=== PATIENT | male | born 1965 | race Caucasian/White ===

== ENCOUNTER 2018-04-16 06:26 | Day surgery (SDC) | payer BC, SELFPAY ==
--- NOTE | 2018-04-11 06:28 | EKG12_ITS ---
Test Reason : PREOP Blood Pressure : / mmHG Vent. Rate : 064 BPM Atrial Rate : 064 BPM P-R Int : 174 ms QRS Dur : 096 ms QT Int : 404 ms P-R-T Axes : 060 034 047 degrees QTc Int : 416 ms Normal sinus rhythm Normal ECG Confirmed by RICHARD VELIZ ([id number]), visual effects editor DEBORAH SOLIMAN ([id number]) on 04/14/2018 2:18:06 PM Referred By: Jonny Pak Confirmed By:RICHARD VELIZ
[2018-04-11 07:34] LABS: Hematocrit 45.7 % (40-54); Hemoglobin 15.6 g/dl (13.0-16.5); Mean Corp Hgb Conc 34.1 g/gl (32-36); Mean Corpuscular Hgb 31.9 pg (27.0-32.0); Mean Corpuscular Volume 93.5 fL (80-94); Mean Platelet Vol. 10.2 fl (6.2-12.0); Platelet Count 202 K/mm3 (150-450); RBC Distribution Width CV 12.8 % (11.6-14.6); Red Blood Count 4.89 M/mm3 (4.6-6.2); White Blood Count 6.6 K/mm3 (4.4-11.0)
[2018-04-11 07:44] LABS: Scan Indicated on CBC? Y/N NO
[2018-04-11 07:51] LABS: Anion Gap 8 (5-15); BUN 16 mg/dL (7-18); BUN/Creat Ratio 13.3 RATIO (10-20); Calcium,Total 8.6 mg/dL (8.5-10.1); Chloride 107 mmol/L (98-107); EST Glomerular Filtration Rate 67 mL/min (>60); Est Glom Filt Rate - Afr Amer 82 mL/min (>60); Glucose 96 mg/dL (74-106); Potassium 4.3 mmol/L (3.5-5.1); Sodium Level 141 mmol/L (136-145)
[2018-04-16] VITALS (7 sets, daily range): BP systolic 95–154; BP diastolic 63–90; PULSE 48–66; RESP 14–18; TEMP 36.3–36.9; O2SAT 94–100; BMI 32.4
--- NOTE | 2018-04-16 | HERN_PTH ---
PATIENT: KUNAL OREILLY [place] [facility] [place][id number] AGE/SX: 52/M ROOM: RE04/16/[address]: Dr. Jonny Pak MD : [id number] BED: DIS: 04/16/2018 SPEC #: [id number] RECD: 04/16/18 14:54 STATUS: DELPHINE EDI #: [id number] CAROL: 04/16/18 00:[address]: Jonny Pak DEPT: SURGICAL PATHOLOGY RECD BY: Dre Aguilar ENTERED: 04/16/18 14:54 SP TYPE: Hernia OTHR DR: Dr. Gerald Gordon MD Tissues: HERNIA Procedures: Surgery Specimen Level II HEADER OPERATION: Inguinal hernia repair with mesh and umbilical hernia repair PRE-OP DIAGNOSIS: Bilateral inguinal hernia and umbilical hernia TISSUE SUBMITTED: Umbilical hernia sac contents MICROSCOPIC DIAGNOSIS Soft tissue of umbilical region, excision: Consistent with hernia sac. AM:caty 04/17/18 MICROSCOPIC DESCRIPTION Slides are reviewed. GROSS DESCRIPTION Received is one container labeled with the patient name and designated umbilical hernia sac. The specimen consists of three irregular fragments of keating-yellow fibrofatty tissue that in aggregate measure 3 x 1.5 x 1 cm. The specimen is totally submitted in its entirety in one cassette. / AM:sp 04/16/18 TC: 5 CPT: 88680
[2018-04-16] MEDS: Cefazolin 2 GM in 0.9% Normal Saline 100 ML IV (08:19)
[2018-04-16] MEDS: Bupivacaine Mpf 0.5% 30 ML VIAL (09:54)
--- NOTE | 2018-04-16 10:01 | DCINST_ITS ---
Discharge Diet: Light diet - advance as tolerated - if you have questions about your diet instructions, please talk to you doctor. Discharge Activity: May Not Drive - for 1 week or while taking narcotic pain medicine. May shower in (days): 1 Lifting Restrictions: 10 pounds Call your doctor if your incision/area has: Continuous Slow Oozing, Sudden Increased Bleeding, Increased Pain/ Swelling, Increased Redness, Foul Smelling Discharge Call your doctor if you observe: Fever of 101 or Higher Suture Line Care: Avoid Pulling/Pushing, Avoid Pinching/Bending Additional Dressing/Incision Instructions:: Change or remove dressing in 4 days. Leave steri-strips in place for 1 week. Allergies/Adverse Reactions: Allergies No Known Allergies Allergy (Verified 04/16/18 06:42) Medications to take at Discharge Arginine [l-Arginine] 500 mg PO DAILY 04/09/18 Hydrocodone Bitart/Apap 5-325 [[place] 5MG-325MG] 1 tablet PO Q4H PRN PRN 3 Days #10 tablet 04/16/18 The following prescriptions were given: Hydrocodone Bitart/Apap 5-325 [[place] 5MG-325MG] 1 tablet PO Q4H PRN PRN 3 Days #10 tablet PRN Reason: Pain Primary Care Physician: Gerald Gordon MD [Primary Care Provider] - Test Results: Test results from this visit will be discussed in further detail at your follow- up appointment, if applicable. Please Follow Up With: Jonny Pak MD - [phone] When: Call to make an appointment to be seen in about 10 days.
--- NOTE | 2018-04-16 10:01 | PCM.OPRPT ---
Problem List (1) Right inguinal hernia Status: Acute (2) Umbilical hernia without obstruction or gangrene Status: Acute Report of Operation Date of Procedure: 04/16/18 Pre-Operative Diagnosis: Umbilical hernia. Right inguinal hernia. Left inguinal sports hernia Post-Operative Diagnosis: Umbilical hernia. Bilateral direct inguinal hernias Surgery/Procedure Performed:: Laparoscopic bilateral inguinal herniorrhaphy. Umbilical herniorrhaphy with 6.4 cm ventral X mesh Description of Surgical Findings:: Timeout and informed consent was obtained. 52-year-old gent was taken out from placement table underwent general endotracheal intubation anesthesia. Ancef 2 g are given intravenously preoperatively. The abdomen sterilely prepped and draped. A curvilinear incision was made in the inferior portion of the rectus. Sharp dissection was carried down through the subtenons tissue. The incarcerated umbilical hernia sac and contents were sharply dissected free. There is evidence of an umbilical hernia and just 1 cm superiorly a separate linea alba hernia. I dissected that tissue free. I then placed a 10 mm trocar and insufflated the abdomen the CO2 to a pressure of 10 mmHg pressure. 5-minute trochars were placed in bilateral lower quadrants. The abdomen was inspected no evidence any trocar injuries no superficial abnormalities. Now upon laparoscopic visualization of there is evidence of bilateral direct inguinal hernias. I started on the left side incised the peritoneum superior lateral to the internal ring I carried that medially I completely dissected the peritoneum free and across the pubic tubercle. I had the direct indirect spaces completely identified as well as the femoral space. I performed a similar procedure on the right groin. Then I selected a Bard 3D max large mesh for each side. The left was lot number [id number] with reference #[id number] expiry date 10/28/2022. And on the right lot number [id number] 06/07/2003 with a reference number of [id number] and an expiry date of 10/28/2022. I carefully positioned the mesh into place. I secured them medially superiorly and laterally with secure strap. Excellent positioning was achieved bilaterally. I then repaired the peritoneum bilaterally with a secure strap completely obliterating access to the mesh. It is of note that 0.5% Marcaine was used throughout the procedure. A total 30 cc was used. Skin sites were anesthetized. I also performed under visualization ileal inguinal nerve blocks bilaterally. I then addressed the umbilical hernia. I placed a 6.4 cm ventral X mesh. Reference #[id number] with a lot number [id number] an expiry date of 12/29/2019. The tails were secured with interrupted 0 Nurolon. The fascia was approximated the same. Laparoscopic inspection revealed that the mesh appeared to be in good position and I simply placed one cyst secure strap tacking to make sure it was absolutely flat. I sure that the greater omentum was overlying the bowel. The remaining 2 trochars were removed under visualization the abdomen was allowed to deflate CO2. Skin edges were approximated interrupted 4 Monocryl subdermal stitches. Steri-Strips Telfa and OpSite dressings applied. Sponge and instrument and needle counts were reported the surgeon be correct. Blood loss was minimal. The patient tolerated procedure well was taken to the recovery area in satisfactory condition. Specimens umbilical hernia sac and contents. Drains none. Blood loss minimal. Jonny Pak M.D., F.A.C.S. Type of Anesthesia:: General Anesthesiologist: Sanket Hall
--- NOTE | 2018-04-16 10:07 | OP.PCM_ITS ---
Problem List (1) Right inguinal hernia Status: Acute (2) Umbilical hernia without obstruction or gangrene Status: Acute Report of Operation Date of Procedure: 04/16/18 Pre-Operative Diagnosis: Umbilical hernia. Right inguinal hernia. Left inguinal sports hernia Post-Operative Diagnosis: Umbilical hernia. Bilateral direct inguinal hernias Surgery/Procedure Performed:: Laparoscopic bilateral inguinal herniorrhaphy. Umbilical herniorrhaphy with 6.4 cm ventral X mesh Description of Surgical Findings:: Timeout and informed consent was obtained. 52-year-old gent was taken out from placement table underwent general endotracheal intubation anesthesia. Ancef 2 g are given intravenously preoperatively. The abdomen sterilely prepped and drap ed. A curvilinear incision was made in the inferior portion of the rectus. Sharp dissection was carried down through the subtenons tissue. The incarcerated umbilical hernia sac and contents were sharply dissected free. There is evidence of an umbilical hernia and just 1 cm superiorly a separate linea alba hernia. I dissected that tissue free. I then placed a 10 mm trocar and insufflated the abdomen the CO2 to a pressure of 10 mmHg pressure. 5-minute trochars were placed in bilateral lower quadrants. The abdomen was inspected no evidence any trocar injuries no superficial abnormalities. Now upon laparoscopic visualization of there is evidence of bilateral direct inguinal hernias. I started on the left side incised the peritoneum superior lateral to the internal ring I carried that medially I completely dissected the peritoneum free and across the pubic tubercle. I had the direct indirect spaces completely identified as well as the femoral space. I performed a similar procedure on the right groin. Then I selected a Bard 3D max large mesh for each side. The left was lot number [id number] with reference #[id number] expiry date 10/28/2022. And on the right lot number [id number] 06/07/2003 with a reference number of [id number] and an expiry date of 10/28/2022. I carefully positioned the mesh into place. I secured them medially superiorly and laterally with secure strap. Excellent pos itioning was achieved bilaterally. I then repaired the peritoneum bilaterally with a secure strap completely obliterating access to the mesh. It is of note that 0.5% Marcaine was used throughout the procedure. A total 30 cc was used. Skin sites were anesthetized. I also performed under visualization ileal inguinal nerve blocks bilaterally. I then addressed the umbilical hernia. I placed a 6.4 cm ventral X mesh. Reference #[id number] with a lot number [employer] [id number] an expiry date of 12/29/2019. The tails were secured with interrupted 0 Nurolon. The fascia was approximated the same. Laparoscopic inspection revealed that the mesh appeared to be in good position and I simply placed one cyst secure strap tacking to make sure it was absolutely flat. I sure that the greater omentum was overlying the bowel. The remaining 2 trochars were removed under visualization the abdomen was allowed to deflate CO2. Skin edges were approximated interrupted 4 Monocryl subdermal stitches. Steri-Strips Telfa and OpSite dressings applied. Sponge and instrument and needle counts were reported the surgeon be correct. Blood loss was minimal. The patient tolerated procedure well was taken to the recovery area in satisfactory condition. Specimens umbilical hernia sac and contents. Drains none. Blood loss minimal. Jonny Pak M.D., F.A.C.S. Type of Anesthesia:: General Anesthesiologist: Sanket Hall
[2018-04-16] MEDS: HYDROcodone Bitartrate/Apap 5/325 Tablet PO (11:35)
== END 2018-04-16 14:30 | disposition home or self-care (01) ==
LOC: SDC 06:27 → AC 06:27
PROVIDERS: Family Provider Family Medicine; PCP Family Medicine; Referring Provider Surgery; Visit Provider Surgery
PROC: (CPT 49650; principal; 2018-04-16 08:10)
DX: K40.20 Bilateral inguinal hernia, without obstruction or gangrene, not specified as recurrent (principal); K42.0 Umbilical hernia with obstruction, without gangrene
CPT/HCPCS: 00752; 49650; 49652; 36415; 80048; 85027; 88302; 93005; C1781; J7120; J2405

== ENCOUNTER → 2020-03-10 08:50 | Outpatient (CLI) | payer BC, SELFPAY ==
[2020-03-10 10:37] LABS: ALB/GLOB Ratio 1.2 RATIO (0.9-2.4); AST(SGOT) 15 U/L (15-37); Alanine Aminotransfer ALT/SGPT 33 U/L (16-61); Albumin, Serum 3.8 g/dL (3.2-5.0); Alkaline Phosphatase 72 U/L (45-117); Anion Gap 5 (5-15); BUN 16 mg/dL (7-18); BUN/Creat Ratio 14.3 RATIO (10-20); Calcium,Total 8.7 mg/dL (8.5-10.1); Chloride 105 mmol/L (98-107); Cholesterol 156 mg/dL (200); Creatinine, Serum 1.12 mg/dL (0.70-1.30); EST Glomerular Filtration Rate 73 mL/min (>60); Est Glom Filt Rate - Afr Amer 88 mL/min (>60); Globulin 3.3 g/dL (2.2-4.2); Glucose 101 mg/dL (74-106); High Density Lipoprotein 37 mg/dL; PSA,Total - Annual Screen 0.37 ng/mL (0.00-4.00); Potassium 4.2 mmol/L (3.5-5.1); Protein, Total 7.1 g/dL (6.4-8.2); Sodium Level 137 mmol/L (136-145); Thyroid Stim Hormone (TSH) 1.59 uIU/mL (0.358-3.74); Triglycerides 154 mg/dL; Very Low Density Lipoprotein 31 mg/dL (5-40)
== END ==
PROVIDERS: PCP Family Medicine; Referring Provider Family Medicine; Visit Provider Family Medicine
DX: E78.5 Hyperlipidemia, unspecified (principal); E66.9 Obesity, unspecified; Z12.5 Encounter for screening for malignant neoplasm of prostate
CPT/HCPCS: 36415; 80053; 80061; 84153; 84403; 84443; G0103

== ENCOUNTER → 2020-03-18 07:49 | Outpatient (CLI) | payer BC, SELFPAY ==
--- NOTE | 2020-03-18 07:59 | ECHOD_ITS ---
Reason For Study: Family Hx Procedure This was a 2D Doppler, Color Flow transthoracic echocardiogram. The exam was of adequate technical quality. Exam performed in department. Left Ventricle Normal LV size. Left ventricular systolic function is normal. The estimated ejection fraction is 60 %. Transmitral doppler flow suggestive of impaired relaxation of left ventricle. No regional wall motion abnormalities noted. Right Ventricle Normal RV size. Normal systolic function. Atria Normal left atrium. Normal right atrium. No doppler evidence for ASD. Mitral Valve There is no mitral annular calcification. Normal mitral valve. Trivial mitral valve insufficiency. Tricuspid Valve Normal tricuspid valve. Trivial tricuspid valve insufficiency. Aortic Valve Bicuspid aortic valve. Mild focal aortic valve calcification. Pulmonic Valve The pulmonic valve is not well visualized. Great Vessels The aortic root is not well visualized. Pericardium/Pleural No pericardial effusion. MMode/2D Measurements & Calculations LVIDd: 5.1 cm IVSd: 1.2 cm LA dimension: 3.9 cm LVIDs: 3.1 cm LVPWd: 1.3 cm FS: 39.3 % LAV(MOD-bp): 46.1 ml LA A4 area: 16.2 cm2 RA A4 area: 16.7 cm2 LAV(MOD-bp) Indexed: 20.4 ml/m2 LAV(MOD-sp2): 51.8 ml LAV(MOD-sp4): 41.2 ml Time Measurements MV dec time: 0.21 sec Doppler Measurements & Calculations MV E max donavan: 49.9 cm/sec Lat Peak E' Donavan: 9.2 cm/sec Med Peak E' Donavan: 7.2 cm/sec MV A max donavan: 58.5 cm/sec E/E' lat: 5.4 E/E' med: 7.0 MV E/A: 0.85 MV V2 max: 66.9 cm/sec MV P1/2t max donavan: 53.1 cm/sec Ao V2 max: 102.7 cm/sec MV max P.8 mmHg MV P1/2t: 96.1 msec Ao max P.2 mmHg MV V2 mean: 36.6 cm/sec MV dec slope: 161.6 cm/sec2 MV mean P.63 mmHg MVA(P1/2t): 2.3 cm2 MV V2 VTI: 20.5 cm LV V1 max: 82.8 cm/sec PA V2 max: 103.0 cm/sec LV V1 max P.7 mmHg Interpretation Summary Left ventricular systolic function is normal. The estimated ejection fraction is 60 %. Trivial mitral valve insufficiency. Trivial tricuspid valve insufficiency. Bicuspid aortic valve. Mild focal aortic valve calcification. Transmitral doppler flow suggestive of impaired relaxation of left ventricle Ordering Physician: Mckay Rios Referring Physician: Mckay Rios Performed By: Marques Garcia RCS
== END ==
LOC: CVS 07:54
PROVIDERS: PCP Family Medicine; Referring Provider Family Medicine; Visit Provider Family Medicine
DX: Z82.49 Family history of ischemic heart disease and other diseases of the circulatory system (principal)
CPT/HCPCS: 93306

== ENCOUNTER 2020-09-02 13:36 | Outpatient (RCR) | payer BC, SELFPAY | END 2020-11-08 23:59 | LOC: IMMUN 13:36 | PROVIDERS: PCP Family Medicine; Visit Provider Family Medicine | DX: Z23 Encounter for immunization (principal) | CPT/HCPCS: 0001A; 0002A; 91300 ==

== ENCOUNTER → 2021-04-14 09:15 | Outpatient (CLI) | payer BC, SELFPAY ==
[2021-04-14 12:53] LABS: ALB/GLOB Ratio 1.1 RATIO (0.9-2.4); AST(SGOT) 23 U/L (15-37); Alanine Aminotransfer ALT/SGPT 39 U/L (16-61); Albumin, Serum 3.7 g/dL (3.2-5.0); Alkaline Phosphatase 73 U/L (45-117); Anion Gap 6 (5-15); BUN 19 mg/dL (7-18); BUN/Creat Ratio 15.3 RATIO (10-20); Calcium,Total 8.5 mg/dL (8.5-10.1); Chloride 105 mmol/L (98-107); Cholesterol 174 mg/dL (200); Creatinine, Serum 1.24 mg/dL (0.70-1.30); EST Glomerular Filtration Rate 64 mL/min (>60); Est Glom Filt Rate - Afr Amer 78 mL/min (>60); Globulin 3.4 g/dL (2.2-4.2); Glucose 93 mg/dL (74-106); High Density Lipoprotein 33 mg/dL; PSA,Total - Annual Screen 0.31 ng/mL (0.00-4.00); Protein, Total 7.1 g/dL (6.4-8.2); Sodium Level 138 mmol/L (136-145); Thyroid Stim Hormone (TSH) 0.86 uIU/mL (0.358-3.74); Triglycerides 154 mg/dL; Very Low Density Lipoprotein 31 mg/dL (5-40)
== END ==
PROVIDERS: PCP Family Medicine; Referring Provider Family Medicine; Visit Provider Family Medicine
DX: E78.5 Hyperlipidemia, unspecified (principal); E66.9 Obesity, unspecified; Z12.5 Encounter for screening for malignant neoplasm of prostate
CPT/HCPCS: 36415; 80053; 80061; 84153; 84443; G0103

== ENCOUNTER → 2022-03-27 | Outpatient (CLI) | payer BC, SELFPAY ==
[2022-03-27 12:35] LABS: ALB/GLOB Ratio 1.3 RATIO (0.9-2.4); AST(SGOT) 18 U/L (15-37); Alanine Aminotransfer ALT/SGPT 35 U/L (16-61); Albumin, Serum 3.9 g/dL (3.2-5.0); Alkaline Phosphatase 85 U/L (45-117); Anion Gap 6 (5-15); BUN 17 mg/dL (7-18); BUN/Creat Ratio 16.7 RATIO (10-20); Calcium,Total 8.6 mg/dL (8.5-10.1); Chloride 106 mmol/L (98-107); Cholesterol 149 mg/dL (200); Creatinine, Serum 1.02 mg/dL (0.70-1.30); EST Glomerular Filtration Rate 80 mL/min (>60); Est Glom Filt Rate - Afr Amer 97 mL/min (>60); Globulin 3.1 g/dL (2.2-4.2); Glucose 96 mg/dL (74-106); High Density Lipoprotein 30 mg/dL; PSA,Total - Annual Screen 0.55 ng/mL (0.00-4.00); Potassium 4.6 mmol/L (3.5-5.1); Sodium Level 137 mmol/L (136-145); Thyroid Stim Hormone (TSH) 1.65 uIU/mL (0.358-3.74); Triglycerides 255 mg/dL; Very Low Density Lipoprotein 51 mg/dL (5-40)
== END | disposition home or self-care (01) ==
LOC: MFPLAB 10:21
PROVIDERS: PCP Family Medicine; Referring Provider Family Medicine; Visit Provider Family Medicine
DX: Z00.00 Encounter for general adult medical examination without abnormal findings (principal); E78.5 Hyperlipidemia, unspecified
CPT/HCPCS: 36415; 80053; 80061; 84153; 84443; G0103

== ENCOUNTER → 2022-07-26 | Outpatient (CLI) | payer BC, SELFPAY ==
--- NOTE | 2022-07-26 11:39 | RAD_ITS ---
STUDY: X-RAY - LUMBOSACRAL SPINE REASON FOR EXAM: Male, 56 years old. Chronic pain. TECHNIQUE: 6 view(s) of the lumbosacral spine were obtained including oblique views and flexion-extension views.. COMPARISON: None FINDINGS: Normal lumbar lordosis. There is a minimal dextroscoliosis of the lumbar spine. There is normal alignment of the vertebrae. There is mild multilevel endplate spondylosis of the lumbar vertebrae. Moderate degree of disc space narrowing at the L4-L5 level. Normal bilateral sacral ala, sacroiliac joints, and visualized sacrum. Normal visualized soft tissue structures. RAD/L/S Spine w Bend Min 6 Vw IMPRESSION: Degenerative changes of the spine, as detailed above. Electronically Signed: Júnior Diaz MD at 15:26 EST ,
== END | disposition home or self-care (01) ==
LOC: MTRAD 11:39
PROVIDERS: PCP Family Medicine; Referring Provider Nurse Practitioner Family; Visit Provider Nurse Practitioner Family
DX: M54.9 Dorsalgia, unspecified (principal); G89.29 Other chronic pain
CPT/HCPCS: 72114

== ENCOUNTER → 2023-04-01 | Outpatient (CLI) | payer BC, SELFPAY ==
[2023-04-01 10:21] LABS: ALB/GLOB Ratio 1.1 RATIO (0.9-2.4); AST(SGOT) 15 U/L (15-37); Alanine Aminotransfer ALT/SGPT 41 U/L (16-61); Albumin, Serum 3.8 g/dL (3.2-5.0); Alkaline Phosphatase 68 U/L (45-117); Anion Gap 3 (5-15); BUN 17 mg/dL (7-18); BUN/Creat Ratio 14.8 RATIO (10-20); Calcium,Total 8.7 mg/dL (8.5-10.1); Chloride 107 mmol/L (98-107); Cholesterol 166 mg/dL (200); Creatinine, Serum 1.15 mg/dL (0.70-1.30); EST Glomerular Filtration Rate 70 mL/min (>60); Est Glom Filt Rate - Afr Amer 84 mL/min (>60); Globulin 3.4 g/dL (2.2-4.2); Glucose 93 mg/dL (74-106); High Density Lipoprotein 31 mg/dL; PSA,Total - Annual Screen 0.41 ng/mL (0.00-4.00); Potassium 3.6 mmol/L (3.5-5.1); Protein, Total 7.2 g/dL (6.4-8.2); Sodium Level 136 mmol/L (136-145); Thyroid Stim Hormone (TSH) 1.75 uIU/mL (0.358-3.74); Triglycerides 275 mg/dL; Very Low Density Lipoprotein 55 mg/dL (5-40)
== END | disposition home or self-care (01) ==
LOC: MFPLAB 08:00
PROVIDERS: PCP Family Medicine; Visit Provider Family Medicine
DX: E66.9 Obesity, unspecified (principal); E78.5 Hyperlipidemia, unspecified; Z12.5 Encounter for screening for malignant neoplasm of prostate
CPT/HCPCS: 36415; 80053; 80061; 84153; 84443; G0103

== ENCOUNTER → 2023-05-14 | Outpatient (CLI) | payer BC, SELFPAY ==
--- NOTE | 2023-05-14 07:57 | ECHOD_ITS ---
Reason For Study: Possible bicuspid AV Procedure This was a 2D Doppler, Color Flow transthoracic echocardiogram. Exam performed in department. Left Ventricle Normal LV size. The estimated ejection fraction is 55 %. No regional wall motion abnormalities noted. Right Ventricle Normal RV size. Normal systolic function. Atria Normal left atrium. Normal right atrium. No doppler evidence for ASD. Mitral Valve There is no mitral valve stenosis. Trivial mitral valve insufficiency. Tricuspid Valve There is no tricuspid stenosis. Trivial tricuspid valve insufficiency. Unable to estimate RV systolic pressure due to insufficient tricuspid regurgitant envelope. Aortic Valve Trisinus/trileaflet aortic valve. There is no aortic stenosis. No aortic valve insufficiency. Pulmonic Valve There is no pulmonic valvular stenosis. Trivial pulmonic valve insufficiency. Great Vessels Normal aortic root. Pericardium/Pleural No pericardial effusion. MMode/2D Measurements & Calculations LVIDd: 5.3 cm IVSd: 1.1 cm Ao root diam: 3.0 cm LVIDs: 3.2 cm LVPWd: 1.1 cm RVDd: 3.6 cm FS: 39.5 % LAV(MOD-bp): 80.2 ml LVAd ap4: 34.6 cm2 LVAd ap2: 35.0 cm2 LAV(MOD-bp) Indexed: 34.5 ml/m2 LVLd ap4: 8.8 cm LVLd ap2: 8.7 cm LAV(MOD-sp2): 74.2 ml EDV(MOD-sp4): 111.0 ml EDV(MOD-sp2): 117.2 ml LAV(MOD-sp4): 84.6 ml EDV(sp4-el): 115.6 ml EDV(sp2-el): 118.6 ml LVAs ap4: 20.5 cm2 LVAs ap2: 21.8 cm2 LVLs ap4: 7.5 cm LVLs ap2: 7.8 cm ESV(MOD-sp4): 45.8 ml ESV(MOD-sp2): 53.0 ml ESV(sp4-el): 47.2 ml ESV(sp2-el): 52.0 ml EF(MOD-sp4): 58.8 % EF(MOD-sp2): 54.8 % EF(sp4-el): 59.2 % SV(MOD-sp4): 65.2 ml SV(MOD-sp2): 64.2 ml SV(sp4-el): 68.4 ml LA dimension(2D): 4.0 cm LA A4 area: 24.2 cm2 RA A4 area: 18.4 cm2 TAPSE: 2.0 cm Time Measurements MV dec time: 0.14 sec Doppler Measurements & Calculations MV E max donavan: 61.9 cm/sec Lat Peak E' Donavan: 11.4 cm/sec Med Peak E' Donavan: 7.9 cm/sec MV A max donavan: 55.8 cm/sec E/E' lat: 5.4 E/E' med: 7.8 MV E/A: 1.1 MV dec slope: 438.1 cm/sec2 Ao V2 max: 125.4 cm/sec LV V1 max: 98.6 cm/sec Ao max P.3 mmHg LV V1 max P.9 mmHg Ao V2 mean: 94.6 cm/sec LV V1 mean P.2 mmHg Ao mean P.8 mmHg LV V1 mean: 70.0 cm/sec Ao V2 VTI: 27.0 cm LV V1 VTI: 20.5 cm AV (velocity ratio): 0.76 PA V2 max: 93.3 cm/sec PA V2 mean: 64.8 cm/sec ECHO/Echo Complete Interpretation Summary The estimated ejection fraction is 55 %. Trivial mitral valve insufficiency. Ordering Physician: Mckay Rios Referring Physician: Mckay Rios Performed By: Celina Grimes RDCS
== END | disposition home or self-care (01) ==
LOC: CVS 07:57
PROVIDERS: PCP Family Medicine; Referring Provider Family Medicine; Visit Provider Family Medicine
DX: Q23.1 Congenital insufficiency of aortic valve (principal)
CPT/HCPCS: 93306

== ENCOUNTER 2023-05-22 12:27 | Day surgery (SDC) | payer BC, SELFPAY ==
[2023-05-22] MEDS: Lactated Ringers 1,000 ML 15 ML IV (12:53)
[2023-05-22 12:54] VITALS: BP 141/93; PULSE 99; RESP 18; TEMP 36.1; O2SAT 100; BMI 33.5
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
[2023-05-22 14:20] VITALS: BP 104/74; BP 141/93; PULSE 82; RESP 16; O2SAT 97
[2023-05-22 14:30] VITALS: BP 119/76; BP 141/93; PULSE 75; RESP 16; TEMP 36.3; O2SAT 95
--- NOTE | 2023-05-22 14:34 | OP.CCLET_ITS ---
05/22/2023 Mckay Rios [address] [place] [address] Re : Colonoscopy procedure for Flaco Cerda Dear Dr. Rios This procedure was performed on Monday, May 22, 2023. My impressions and recommendations are as follows: Impressions : - Perianal skin tags found on perianal exam. - The entire examined colon is normal. No specimens collected. - Internal hemorrhoids. No specimens collected. Recommendations : - Discharge patient to home (via wheelchair). - Resume previous diet today. - Continue present medications. - Repeat colonoscopy in 5 years for screening purposes. - Telephone my office for study results in 1 week. My findings are described in the full procedure note, which is enclosed. If I can be of further assistance, please feel free to contact me at Doctor phone number(s): , Work: . Sincerely, Silvestre Bob MD 05/22/2023 2:33:35 PM This report has been signed electronically.
--- NOTE | 2023-05-22 14:34 | OP.COLON_ITS ---
Patient Name: Flaco Cerda Procedure Date: 05/22/2023 1:57 PM Date of : 1965 Age: 57 Procedure: Colonoscopy Indications: Screening patient at increased risk: Family history of 1st-degree relative with colorectal cancer at age 60 years (or older) Providers: Silvestre Bob MD Referring MD: Silvestre Bob MD Medicines: See the Anesthesia note for documentation of the administered medications Patient Profile: Last Colonoscopy: 5 years ago. Complications: No immediate complications. Estimated blood loss: None. Procedure: Pre-Anesthesia Assessment: - The heart rate, respiratory rate, oxygen saturations, blood pressure, adequacy of pulmonary ventilation, and response to care were monitored throughout the procedure. After I obtained informed consent, the scope was passed under direct vision. Throughout the procedure, the patient's blood pressure, pulse, and oxygen saturations were monitored continuously. The pediatric colonoscope was introduced through the anus and advanced to the cecum, identified by appendiceal orifice and ileocecal valve. The colonoscopy was performed without difficulty. The patient tolerated the procedure well. The quality of the bowel preparation was excellent. Scope In: 2:10:11 PM Scope Withdrawal Time 0 hours 11 minutes 52 seconds Scope Out: 2:26:26 PM Total Procedure Duration Time 0 hours 16 minutes 15 seconds Findings: Skin tags were found on perianal exam. The colon (entire examined portion) appeared normal. No biopsies or other specimens were collected for this exam. Internal hemorrhoids were found during retroflexion. The hemorrhoids were Grade I (internal hemorrhoids that do not prolapse). No biopsies or other specimens were collected for this exam. Impression: - Perianal skin tags found on perianal exam. - The entire examined colon is normal. No specimens collected. - Internal hemorrhoids. No specimens collected. Recommendation: - Discharge patient to home (via wheelchair). - Resume previous diet today. - Continue present medications. - Repeat colonoscopy in 5 years for screening purposes. - Telephone my office for study results in 1 week. Procedure Code(s): --- Professional --- G0105, Colorectal cancer screening; colonoscopy on individual at high risk Diagnosis Code(s): --- Professional --- Z80.0, Family history of malignant neoplasm of digestive organs K64.0, First degree hemorrhoids K64.4, Residual hemorrhoidal skin tags CPT copyright 2022 [employer]. All rights reserved. The codes documented in this report are preliminary and upon management lead review may be revised to meet current compliance requirements. Silvestre Bob MD 05/22/2023 2:33:35 PM This report has been signed electronically. Number of Addenda: 0 Note Initiated On: 05/22/2023 1:57 PM
[2023-05-22 14:35] VITALS: BP 102/74; BP 141/93; PULSE 81; RESP 16; O2SAT 96
[2023-05-22 14:50] VITALS: BP 141/93
== END 2023-05-22 15:13 | disposition home or self-care (01) ==
LOC: EN 12:28 → AC 12:30
PROVIDERS: PCP Family Medicine; Referring Provider Family Medicine; Visit Provider Surgery
PROC: 0DJD8ZZ Inspection of Lower Intestinal Tract, Via Natural or Artificial Opening Endoscopic (ICD-10-PCS; CPT 45378; principal; 2023-05-22 13:25)
DX: Z12.11 Encounter for screening for malignant neoplasm of colon (principal); K64.0 First degree hemorrhoids; K64.4 Residual hemorrhoidal skin tags; Z80.0 Family history of malignant neoplasm of digestive organs
CPT/HCPCS: G0105; J7120; J2405

== ENCOUNTER → 2023-05-30 | Outpatient (CLI) | payer BC, SELFPAY ==
--- NOTE | 2023-05-30 07:56 | AAVD_ITS ---
Reason For Study: Pulsatile Abdominal Lesion Aorta Measurements Aorta Doppler Measurements Proximal aorta measures2.53 x 2.66cm. in cross- Peak systolic flow velocities within the proximal sectional axis. aorta measure 112.2 cm/sec. Proximal aorta measures2.82cm. in longitudinal Peak systolic flow velocities within the mid aorta axis. measure 85.0 cm/sec. Mid aorta measures1.92 x 1.92cm. in cross- Peak systolic flow velocities within the distal sectional axis. aorta measure 92.2 cm/sec. Mid aorta measures1.95cm. in longitudinal axis. Distal aorta measures1.84 x 1.91cm. in cross- sectional axis. Distal aorta measures1.79cm. in longitudinal axis. Left Iliac Artery Left iliac artery measures 1.08 x 1.04 cm. in the cross-sectional axis. Left iliac artery measures 1.04 cm. in the longitudinal axis. Peak systolic velocity in the left iliac artery measures 124.9 cm/sec. Right Iliac Artery Right iliac artery measures 0.97 x 0.99 cm. in the cross-sectional axis. Right iliac artery measures 0.98 cm. in the longitudinal axis. Peak systolic velocity in the right iliac artery measures 90.4 cm/sec. Procedure Aorta IVC Iliac vasculature or bypass grafts [id number]. The exam was diagnostic. Exam performed in department. VL/Abd Aortic/IVC Duplex scan Interpretation Summary Maximal aortic diameter approximately 2.53 x 2.66 cm consistent with minimal ec shayla. Minimally elevated velocity in the proximal aorta at 112.2 cm/s. Likely not cli nically significant Left common iliac artery normal at 1.08 x 1.04 cm diameter which is normal Right common iliac artery 0.97 x 0.99 cm diameter which is normal Ordering Physician: Silvestre Bob Referring Physician: Yohan Rios MD Performed By: Sanket Marquez RVT
--- OUTSIDE RECORDS SUMMARY | 2023-05-30 08:00 | XMS RPT_ITS | CCD ---
Author Name Unknown Address [address] [place] [address] Organization [facility] Care Team Providers Care Associate Account Manager Name Role Phone Jonny Pak MD Unavailable Elva Valdes PA-C Unavailable JARROD ALMARAZ Unavailable Unavailable VLAD MARINA Unavailable Unavailable Yobani Lewis MD Unavailable [phone] Medications Completed/Discontinued Medications Medication Drug Class(es) Dates Sig (Normalized) Sig (Original) Multivitamin preparation (1 source) take 1 tablet by mouth once daily MULTI-VITAMINS TABS 1 tablet by mouth once a day multivitamin [id number] Cindy Luciano LPN Drug Treatment Unknown - unknown (1 source) No information available. Problems Active Problems Problem Classification Problem Date Documented Da te Episodic/Chronic Anxiety disorders (2 sources) Anxiety; Translations: [Anxiety disorder, unspecified] Onset: 04-18-2017 04-18-2017 Chronic Gout and other crystal arthropathies (1 source) Chondrocalcinosis; Translations: [Other chondrocalcinosis, unspecified site] Onset: 05-10-2021 05-10-2021 Chronic Joint disorders and dislocations; trauma-related (1 source) Tear of medial meniscus of knee; Translations: [Other tear of medial meniscus, current injury, right knee, subsequent encounter] Onset: 05-10-2021 06-27-2021 Episodic Osteoarthritis (1 source) Unilateral primary osteoarthritis, right knee; Translations: [Osteoarthrosis, localized, primary, lower leg] Onset: 05-10-2021 05-10-2021 Chronic Unclassified (3 sources) Screening for malignant neoplasm of colon ; Translations: [Encounter for screening for malignant neoplasm of colon] Onset: 04-02-2017 04-02-2017 Past or Other Problems Problem Classification Problem Date Documented Da te Episodic/Chronic Hemorrhoids (2 sources) Hemorrhoids; Translations: [Unspecified hemorrhoids] Onset: 04-18-2017 04-18-2017 Episodic Unclassified (1 source) Problem Results Test Name Value Interpretation Reference Range Facil ity Vital Signs Date Time Vital Sign Value Performing Clinician Facility 04-18-2017 13:22-0500 BMI (Body Mass Index) 29.5 kg/m2 Jonny Pak MD [facility] Work Phone: 04-18-2017 13:22-0500 Body Temperature 97.8 [degF] Jonny Pak MD [facility] Work Phone: 04-18-2017 13:22-0500 BP Diastolic 90 mm[Hg] Jonny Pak MD [facility] Work Phone: 04-18-2017 13:22-0500 BP Systolic 144 mm[Hg] Jonny Pak MD [facility] Work Phone: 04-18-2017 13:22-0500 Height 184.15 cm Jonny Pak MD [facility] Work Phone: 04-18-2017 13:22-0500 Pulse (Heart Rate) 71 /min Jonny Pak MD [facility] Work Phone: 04-18-2017 13:22-0500 Respiratory Rate 20 /min Jonny Pak MD [facility] Work Phone: 04-18-2017 13:22-0500 Weight 100.06 kg Jonny Pak MD [facility] Work Phone: NEGATED: Highlighted [id number] 08:05-0500 Body height 181.61 cm Teresa Pavick AT [facility] Work Phone: NEGATED: Highlighted [id number] 08:05-0500 Body height 182 cm Teresa Pavick AT [facility] Work Phone: NEGATED: Highlighted [id number] 08:05-0500 Body mass index (BMI) [Ratio] 34.78 kg/m2 Teresa Pavick AT [facility] Work Phone: NEGATED: Highlighted [id number] 08:05-0500 Body temperature 97.5 [degF] Teresa Zuleta AT [facility] Work Phone: NEGATED: Highlighted [id number] 08:05-0500 Body temperature 97.52 [degF] Teresa Zuleta AT [facility] Work Phone: NEGATED: Highlighted [id number] 08:05-0500 Body weight 114.31 kg Teresablane Zuleta AT [facility] Work Phone: NEGATED: Highlighted [id number] 08:05-0500 Body weight 115 kg Teresa Zuleta AT [facility] Work Phone: Encounters Encounter Date Encounter Type Care Provider Facility Start: 01-23-2018 End: 01-23-2018 Emergency department patient visit JARROD Edmondson ity:B Procedures Date Procedure Procedure Detail Performing Clinician Start: 07-31-2021 End: 07-31-2021 BP scrn no perf at interval Yobani Lewis MD Work Phone: Start: 07-31-2021 End: 07-31-2021 Calc BMI abv up lexi f/u Yobani Lewis MD Work Phone: Start: 07-31-2021 End: 07-31-2021 Current tobacco non-user cad cap copd pv dm Yobani Lewis MD Work Phone: Start: 07-31-2021 End: 07-31-2021 Docrev cur meds by elig clin Yobani Lewis MD Work Phone: Start: 07-31-2021 End: 07-31-2021 Pain neg no plan Yobani Lewis MD Work Phone: Start: 07-31-2021 End: 07-31-2021 Patient encounter procedure Yobani Lewis MD Work Phone: Start: 04-18-2017 End: 04-18-2017 Colonoscopy flx dx w/collj spec when pfrmd Jonny Pak MD Work Phone: Start: 04-02-2017 End: 04-18-2017 Colonoscopy flx dx w/collj spec when pfrmd Elva Valdes PA-C Work Phone: NEGATED: Highlighted rowStart: 07-31-2021 End: 07-31-2021 Documentation of current medications Teresa Zuleta AT Plan of Treatment Date Care Activity Detail Author Start: 07-31-2021 End: 07-31-2021 Patient encounter procedure Appointment [facility] Work Phone: Start: 04-24-2017 End: 04-24-2017 Appointment Appointment [facility] Work Phone: Start: 04-18-2017 End: 04-18-2017 Colonoscopy flx dx w/collj spec when pfrmd Colonoscopy [facility] Work Phone: Start: 04-18-2017 End: 04-18-2017 Appointment Appointment [facility] Work Phone: Start: 04-02-2017 End: 04-18-2017 Colonoscopy flx dx w/collj spec when pfrmd Colonoscopy [facility] Work Phone: Payers Date Payer Category Payer Unknown [id number] Social History Date Type Detail Facility Start: 07-31-2021 End: 07-31-2021 Assertion Unknown if ever smoked [facility] Work Phone: NEGATED: Highlighted rowStart: 07-31-2021 End: 07-31-2021 Employment detail Employment detail [facility] Work Phone: Progress note 08-15-2020 Note Date & Type Note Facility 08-15-2020 Note HNO ID: [id number] Author: Danica Gonzalez) Athandre Service: ? Author Type: Physician Occup Ther Type: Progress Notes Filed: 08/15/2020 8:20 AM Note Text: This note was created using VCharge. Subjective Kunal Cerda is a 54 year old male. HPI Patient presents with sinus pressure, drainage headache right-sided ear pain over the past 5 to 6 days. He denies cough. No chest pain or shortness of breath. He has tried [id number] Tylenol Sinus and a Zicam nasal spray. He has felt feverish with some sweats but no temp taken at home. he denies changes in smell or taste. Denies any Covid exposure. Review of Systems Constitutional: Positive for diaphoresis. Negative for chills. HENT: Positive for congestion, ear pain, postnasal drip, sinus pressure, sinus pain and sore throat. Respiratory: Negative for cough. Cardiovascular: Negative. Gastrointestinal: Negative. Genitourinary: Negative. Musculoskeletal: Negative. Neurological: Positive for headaches. All other systems reviewed and are negative. History reviewed. No pertinent past medical history. Current Outpatient Medications Medication Sig Dispense Refill - MAGNESIUM ORAL Take by mouth. - niacin (NIACIN) 50 mg tablet Take 50 mg by mouth daily with breakfast. - amoxicillin-clavulanic acid (AUGMENTIN) 875-125 mg per tablet Take 1 tablet by mouth twice daily for 10 days. 20 tablet 0 - triamcinolone (KENALOG) 0.025 % cream Apply 1 application to affected area twice daily. (Patient not taking: Reported on 01/01/2020 ) 30 g 0 - aspirin, enteric coated (ASPIRIN, ENTERIC COATED) 81 mg EC tablet Take 81 mg by mouth twice daily. No current facility-administered medications for this visit. History reviewed. No pertinent surgical history. History reviewed. No pertinent family history. Social History Tobacco Use - Smoking status: Never Smoker - Smokeless tobacco: Never Used Substance Use Topics - Alcohol use: Not on file - Drug use: Not on file Objective BP 122/70 Pulse 78 Temp 36.4 ?C (97.5 ?F) (Tympanic) Resp 16 Wt 108.9 kg (240 lb) SpO2 96% Physical Exam Vitals reviewed. Constitutional: Appearance: Normal appearance. HENT: Head: Normocephalic and atraumatic. Right Ear: Ear canal and external ear normal. Left Ear: Tympanic membrane, ear canal and external ear normal. Ears: Comments: Serous middle ear effusion on right. Nose: Congestion present. Right Sinus: Maxillary sinus tenderness present. Mouth/Throat: Mouth: Mucous membranes are moist. Pharynx: Oropharynx is clear. Cardiovascular: Rate and Rhythm: Normal rate and regular rhythm. Heart sounds: Normal heart sounds. Pulmonary: Effort: Pulmonary effort is normal. Breath sounds: Normal breath sounds. Musculoskeletal: Cervical back: Neck supple. Lymphadenopathy: Cervical: No cervical adenopathy. Skin: General: Skin is warm and dry. Findings: No rash. Neurological: General: No focal deficit present. Mental Status: He is alert and oriented to person, place, and time. Assessment and Plan ASSESSMENT/PLAN: 1. Viral URI - ICD9: 465.9, ICD10: J06.9 (primary diagnosis) - Discussed viral etiology and rationale for treatment. - Symptomatic treatment with prn analgesia - Supportive care with fluids and rest - 2019 CORONAVIRUS 2. Acute FLACO (middle ear effusion), right - ICD9: 381.00, ICD10: H65.191 - Supportive care with plenty of fluids, rest, and analgesia prn. - Follow up in one week if symptoms persist or worsen. -Discussed if the ear or sinus pressure worsens over the next 3 to 4 days he could fill the antibiotic but this is likely viral at this point. I did discuss with the patient we should rule out Covid with a swab. He was agreeable with the swab. I did recommend staying home today until he gets results back. Patient still planning on going in to work today despite my recommendation. - 2019 CORONAVIRUS Danica Kirby PA-C [facility] Evaluation note Note Date & Type Note Facility Evaluation note There may be informa tion available, but it has not been provided by the sender. [facility] Work Phone: Instructions Note Date & Type Note Facility [facility] Work Phone: Summary Purpose Family History No Family History Records FoundNo Family History Records FoundThere may be information available, but it has not been provided by the sender. Advance Directives No Advanced Directives Records FoundNo Advanced Directives Records FoundThere may be information available, but it has not been provided by the sender. Chief Complaint Chief Complaint Description Start Date right knee post RIght Knee A rthroscopy with Partial Medial Meniscectomy and Chondroplasty of the Patella and Medial Femoral Condyle and Medial Tibial Plateau on 06/15/2021 Preliminary chief co mplaint data, not yet signed by the author as of Additional Source Comments (unrecognized sect ion and content) No Status Records FoundNo Status Records Found INFORMATION SOURCE (unrecogn ized section and content) DATE CREATED AUTHOR AUTHOR'S ORGANIZ ATION 06/27/2021 [facility] Reason for Visit (unrecogniz ed section and content) FOR RECORDS PERTAINING TO PATIENTS WHO ARE OR HAVE BEEN ENROLLED IN A CHEMICAL DEPENDENCY/SUBSTANCEABUSE PROGRAM, SOME INFORMATION MAY BE OMITTED. This clinical summary was aggregated from multiple sources. Caution should be exercised in using it in the provision of clinical care. This summary normalizes information from multiple sources, and as a consequence, information in this document may materially change the coding, format and clinical context of patient data. In addition, data may be omitted in some cases. CLINICAL DECISIONS SHOULD BE BASED ON THE PRIMARY CLINICAL RECORDS. [employer] provides no warranty or guarantee of the accuracy or completeness of information in this document.
== END | disposition home or self-care (01) ==
LOC: CVS 07:56
PROVIDERS: PCP Family Medicine; Referring Provider Surgery; Visit Provider Surgery
DX: I77.9 Disorder of arteries and arterioles, unspecified (principal)
CPT/HCPCS: 93978

== ENCOUNTER 2023-12-18 16:16 | Emergency (ER) | payer BC, SELFPAY ==
[2023-12-18 16:18] VITALS: BP 170/96; PULSE 68; RESP 18; TEMP 36.3; O2SAT 99; BMI 34.3
--- NOTE | 2023-12-18 16:52 | EKG12_ITS ---
Test Reason : PALPS Blood Pressure : / mmHG Vent. Rate : 057 BPM Atrial Rate : 057 BPM P-R Int : 172 ms QRS Dur : 098 ms QT Int : 400 ms P-R-T Axes : 065 035 043 degrees QTc Int : 389 ms Sinus bradycardia Nonspecific T wave abnormality Abnormal ECG Confirmed by PAULINO DAUGHERTY, BENNETT ([id number]), assistant production editor MASHA JENSEN ([id number]) on 12/19/2023 1:00:11 PM Referred By: Confirmed By:BENNETT BOB MD
--- NOTE | 2023-12-18 17:21 | EX.ED.DYSGE1 ---
HPI History of Present Illness Chief Complaint: Palpitations Narrative Narrative: 58-year-old male with palpitations. Onset was yesterday. He had a couple episodes. He felt lightheaded at home and at 1 point but he was able to get up and walk to the kitchen to get a drink of water. He did not faint. Denies any chest pain or shortness of breath. No fevers or chills. PFSH PFS Medical History Arthritis Non-smoker History of edema History of echocardiogram Family hx of colon cancer Bicuspid aortic valve Sports hernia Umbilical hernia without obstruction or gangrene Right inguinal hernia Back pain Hemorrhoid Home Medications ?Medication ?Instructions ?Recorded ?Last Taken ?Type acetaminophen 325 mg capsule 325 mg PO ONCE PRN pain 07/13/22 Unknown History magnesium chloride 64 mg 64 mg PO DAILY 07/13/22 Unknown History (magnesium chloride) tablet naproxen sodium 220 mg capsule 220 mg PO BID PRN pain 07/13/22 Unknown History (Aleve) niacin 50 mg tablet 500 mg PO DAILY 07/13/22 Unknown History Allergy/AdvReac Type Severity Reaction Status Date / Time No Known Allergies Allergy Verified 12/18/23 16:18 Family History Mother Diabetes Hypertension Father Seizures Heart disease Pacemaker Colon cancer Late 60's Surgical History Hx of arthroscopic knee surgery Hx of bilateral cataract extraction Hx of inguinal hernia repair History of tonsillectomy History of vasectomy History of colonoscopy (~2016) Social History household members: spouse current occupational status: employed Smoking Status: Never smoker ROS ROS ED Constitutional Constitutional ED: Denies chills, fever(s) or sweats Eyes Eyes: Denies blurry vision or change in vision ENT ENT ED: Denies ear pain or sore throat Cardiovascular Cardiovascular: Reports palpitations and other Details: Lightheadedness ; Denies chest pain or racing heartbeat Respiratory/Chest Respiratory/Chest: Denies cough, dyspnea or sputum Gastrointestinal Gastrointestinal: Denies abdominal pain, constipation, diarrhea, nausea or vomiting Genitourinary Genitourinary ED: Denies dysuria, hematuria or urinary frequency Musculoskeletal Musculoskeletal: Denies arthralgias, myalgias or neck pain Integumentary Denies abscess, Abrasions or rash Neurologic Neurologic: Denies headache(s), paresthesias or weakness Psychiatric Psychiatric: Denies anxiety, depression, suicidal ideation or suicidal thoughts Endocrine Endocrinology: Denies polydipsia or polyuria EXAM Physical Exam Const Vital Signs: 12/18/23 16:18 12/18/23 16:52 12/18/23 16:57 Temperature 97.3 F L Temperature Source Temporal Pulse Rate 68 Respiratory Rate 18 Respiratory Effort Normal Non-Labored Blood Pressure 170/96 H Blood Pressure Mean 120 Pulse Ox 99 Oxygen Delivery Method Room Air Room Air 12/18/23 18:00 Temperature Temperature Source Pulse Rate 64 Respiratory Rate 14 Respiratory Effort Blood Pressure 156/99 H Blood Pressure Mean 115 Pulse Ox 98 Oxygen Delivery Method Positive well nourished General Appearance ED: NAD; Negative for pallor Eyes PERRL and EOMs intact bilaterally Chest Wall inspection of chest normal and palpation of chest normal Resp normal respiratory effort and clear to auscultation bilaterally Auscultation: Negative for rales, rhonchi or wheezes Cardio regular rate and regular rhythm Neuro oriented x3 and CN's II-XII intact bilaterally Sensorium / Orientation: alert Motor Exam: strength 5/5 throughout Psych mental status grossly normal Skin no rashes or lesions noted General Skin Exam: Negative for jaundice or pallor MDM MDM MDM Narrative Medical decision making narrative: 58-year-old male presenting with palpitations lightheadedness. Differential includes ACS, dysrhythmia, dehydration, anemia, electrolyte abnormalities, PVCs, pneumonia. CBC will be obtained to assess white blood cell count, hemoglobin, platelets. BMP to assess renal function, electrolytes, glucose. High-sensitivity troponin and EKG to assess for ischemia/dysrhythmia. Chest x-ray to rule out pneumonia CBC shows normal white blood cell count 7.0. Hemoglobin 14.9. Platelets normal at 216. Renal function electrolytes within normal limits. High-sensitivity troponin 6. EKG interpreted by myself shows a sinus rhythm at 57 bpm without sign of ischemic change or dysrhythmia. Chest x-ray interpreted by myself shows no acute process. Discussed with patient that I can see that he is throwing PVCs on the monitor. This is likely why he is experiencing palpitations. I feel he is safe for discharge home. He should follow-up with his PCP resolution and return precautions were discussed. Impression: 1. Palpitations 2. PVCs Lab Data Attestation: I reviewed the patient's lab results. Labs: Laboratory Results - last 24 hr 12/18/23 17:30 WBC 7.0 RBC 4.83 Hgb 14.9 Hct 44.2 MCV 91.5 MCH 30.8 MCHC 33.7 RDW Std Deviation 42.9 RDW Coeff of Zeke 12.9 Plt Count 216 MPV 9.7 Immature Gran % (Auto) 0.400 Neut % (Auto) 54.4 Lymph % (Auto) 35.0 Pitkin % (Auto) 8.3 Eos % (Auto) 1.3 Baso % (Auto) 0.6 Absolute Neuts (auto) 3.8 Absolute Lymphs (auto) 2.44 Nucleated RBC % 0 Sodium 137 Potassium 3.7 Chloride 105 Carbon Dioxide 28.0 Anion Gap 4 L BUN 16 Creatinine 1.21 Estim Creat Clear Calc 87.10 Est GFR (MDRD) Af Amer 79 Est GFR (MDRD) Non-Af 65 BUN/Creatinine Ratio 13.2 Glucose 111 H Calcium 8.6 Magnesium 2.0 Troponin I High Sens 6 Radiography Diagnostic Testing: Clinical Impression(s) from Imaging Studies Chest X-Ray 12/18/23 17:30 IMPRESSION: Normal x-ray examination of the chest. Electronically Signed: Bob Cooley MD at 17:42 EDT Reading Location ID and State: 4 [facility] Tel , Service support , Discharge Plan Triage Chief Complaint: Palpitations ED Provider: Chava Chin Dx/Rx/DC Orders Instructions: PVCs, ED Palpitations Prescriptions: No Action naproxen sodium [Aleve] 220 mg capsule 220 mg PO BID PRN (Reason: pain) niacin 50 mg tablet 500 mg PO DAILY magnesium chloride 64 mg magnesium tablet 64 mg PO DAILY acetaminophen 325 mg capsule 325 mg PO ONCE PRN (Reason: pain) Primary Care Provider: Yohan Rios Referrals: Yohan Rios MD [Primary Care Provider] - Print Language: Maori Disposition Disposition: Home, Self Care
--- NOTE | 2023-12-18 17:30 | RAD_ITS ---
STUDY: X-RAY CHEST REASON FOR EXAM: Male, 58 years old. chest pain TECHNIQUE: Single AP portable view of the chest. COMPARISON: None. FINDINGS: The lungs are clear and expanded. There is no demonstrated pleural abnormality. Normal size heart. Normal mediastinum and aly. Normal visualized pulmonary arteries. Normal visualized aortic arch and descending thoracic aorta. Normal visualized thoracic spine. Normal visualized ribs, clavicles, and shoulders. There is no demonstrated abnormality of the visualized soft tissue structures of the upper abdomen. RAD/Chest 1 View (Portable) IMPRESSION: Normal x-ray examination of the chest. Electronically Signed: Bob Cooley MD at 17:42 EDT ,
[2023-12-18 17:42] LABS: Absolute Lymphocyte Count 2.44 X10^3/uL (0.83-4.51); Absolute Neutrophil Count 3.8 X10^3/uL (2.0-7.7); Basophil# 0.04 X10^3/uL; Basophil% 0.6 % (0-1); Eosinophil# 0.09 X10^3/uL; Eosinophils% 1.3 % (0-5); Hematocrit 44.2 % (40-54); Hemoglobin 14.9 g/dL (13.0-16.5); Lymphocyte # 2.44 X10^3/ul (0.83-4.51); Mean Corp Hgb Conc 33.7 g/dL (32-36); Mean Corpuscular Hgb 30.8 pg (27.0-32.0); Mean Corpuscular Volume 91.5 fL (80-94); Mean Platelet Vol. 9.7 fl (6.2-12.0); Monocyte# 0.58 X10^3/uL; Monocyte% 8.3 % (0-10); NRBC Flagged by Analyzer 0 % (0-5); Neutrophil # 3.79 X10^3/uL (2.7-7.7); Neutrophil % 54.4 % (47-70); Platelet Count 216 K/mm3 (150-450); RBC Distribution Width CV 12.9 % (11.6-14.6); RBC Distribution Width SD 42.9 fl (35.1-43.9); Red Blood Count 4.83 M/mm3 (4.6-6.2)
[2023-12-18 17:58] LABS: Anion Gap 4 (5-15); BUN 16 mg/dL (7-18); BUN/Creat Ratio 13.2 RATIO (10-20); Calcium,Total 8.6 mg/dL (8.5-10.1); Chloride 105 mmol/L (98-107); Creatinine, Serum 1.21 mg/dL (0.70-1.30); EST Glomerular Filtration Rate 65 mL/min (>60); Est Glom Filt Rate - Afr Amer 79 mL/min (>60); Glucose 111 mg/dL (74-106); Potassium 3.7 mmol/L (3.5-5.1); Sodium Level 137 mmol/L (136-145); Troponin-I HS (w/2H Reflex) 6 pg/mL (3.0-78.0)
[2023-12-18 18:00] VITALS: BP 156/99; PULSE 64; RESP 14; O2SAT 98
[2023-12-18 19:29] VITALS: BP 159/82; PULSE 65; RESP 18; TEMP 36.6; O2SAT 97
[2023-12-18 19:39] LABS: Reflex Troponin-HS? (from REC) Y
== END 2023-12-18 19:33 | disposition home or self-care (01) ==
PROVIDERS: Emergency Provider Student in an Organized Health Care Education/Training Program; PCP Family Medicine; Visit Provider Student in an Organized Health Care Education/Training Program
DX: R00.2 Palpitations (principal); I49.3 Ventricular premature depolarization
CPT/HCPCS: 71045; 80048; 83735; 84484; 85025; 93005; 99284; A4216

== ENCOUNTER → 2024-02-06 | Outpatient (CLI) | payer BC, SELFPAY ==
--- NOTE | 2024-02-06 15:56 | STRESSREP ---
Stress Test Report Exercise myocardial perfusion stress test. 58-year-old man with a history of chest pain Stress protocol: Resting EKG demonstrates normal sinus rhythm with a rate of 62 bpm resting blood pressure is 152/88 mmHg. The patient exercised according to the regular Rolan protocol for a total duration of 9 minutes attaining a maximum heart rate of 166 bpm which was 102% of maximum predicted heart rate; the maximum workload was 10.1 metabolic equivalents. At rest there were no ST or T wave changes noted to suggest ischemia and at peak exercise upsloping ST changes only were noted which did not meet the criteria for ischemia. No clinical angina was noted the test was terminated due to the target heart rate being achieved/fatigue. The peak blood pressure was 232/88 mmHg. this was an exaggerated blood pressure response to exercise. Rate-pressure product was 35,400. Myocardial perfusion protocol. 14.8 mCi of technetium 99m sestamibi was injected at rest. The patient exercised according to regular Rolan protocol for total duration of 9 minutes and at peak exercise 44.3 mCi of technetium 99m sestamibi was injected stress images were obtained stress and rest images were reconstructed in comparing the short axis vertical long and horizontal long axis. Gated images were also obtained. Perfusion SPECT analysis: Review of the stress images demonstrate normal uptake of tracer noted in all areas of the myocardium. The resting images similarly demonstrate normal uptake of tracer noted in all areas of the myocardium. No areas of reversibility are noted to suggest ischemia no previous infarct was noted. Gated SPECT analysis: The gated ejection fraction is 66%. Conclusion: Normal exercise myocardial perfusion stress test at a high workload Preserved ejection fraction. Hypertensive response to exercise
== END | disposition home or self-care (01) ==
PROVIDERS: PCP Family Medicine; Referring Provider Family Medicine; Visit Provider Family Medicine
DX: R07.9 Chest pain, unspecified (principal)
CPT/HCPCS: 78452; 93017; A9500; A4216

== ENCOUNTER → 2024-03-02 | Outpatient (CLI) | payer BC, SELFPAY ==
--- NOTE | 2024-03-02 06:44 | EKG12_ITS ---
Test Reason : PRE OP Blood Pressure : / mmHG Vent. Rate : 061 BPM Atrial Rate : 061 BPM P-R Int : 178 ms QRS Dur : 092 ms QT Int : 368 ms P-R-T Axes : 060 039 083 degrees QTc Int : 370 ms Normal sinus rhythm Nonspecific T wave abnormality Abnormal ECG Confirmed by PAULINO DAUGHERTY, BENNETT ([id number]), technical editor MASHA JENSEN ([id number]) on 03/03/2024 6:33:57 AM Referred By: Ki Hoff Confirmed By:BENNETT BOB MD
[2024-03-02 07:52] LABS: Hematocrit 47.6 % (40-54); Hemoglobin 15.6 g/dL (13.0-16.5); Mean Corp Hgb Conc 32.8 g/dL (32-36); Mean Corpuscular Hgb 31.1 pg (27.0-32.0); Mean Platelet Vol. 9.5 fl (6.2-12.0); Platelet Count 212 K/mm3 (150-450); RBC Distribution Width CV 13.2 % (11.6-14.6); RBC Distribution Width SD 46.2 fl (35.1-43.9); Red Blood Count 5.01 M/mm3 (4.6-6.2); White Blood Count 7.3 K/mm3 (4.4-11.0)
[2024-03-02 08:28] LABS: Anion Gap 6 (5-15); BUN 21 mg/dL (7-18); BUN/Creat Ratio 16.5 RATIO (10-20); Calcium,Total 8.9 mg/dL (8.5-10.1); Chloride 108 mmol/L (98-107); Creatinine, Serum 1.27 mg/dL (0.70-1.30); EST Glomerular Filtration Rate 62 mL/min (>60); Est Glom Filt Rate - Afr Amer 75 mL/min (>60); Glucose 95 mg/dL (74-106); Sodium Level 142 mmol/L (136-145)
== END | disposition home or self-care (01) ==
LOC: PSN 06:43
PROVIDERS: PCP Family Medicine; Referring Provider Otolaryngology; Visit Provider Otolaryngology
DX: Z01.812 Encounter for preprocedural laboratory examination (principal)
CPT/HCPCS: 36415; 80048; 85027; 93005

== ENCOUNTER → 2024-03-16 | Outpatient (CLI) | payer BC, SELFPAY ==
--- NOTE | 2024-03-16 | SEP_PTH ---
PATIENT: KUNAL OREILLY LOC: [facility] U#:[id number] AGE/SX: 58/M ROOM: RE03/16/[address]: Dr. Ki Hoff MD : 1965 BED: DIS: 03/16/2024 SPEC #: [id number] RECD: 03/17/24 11:06 STATUS: DELPHINE EDI #: [id number] CAROL: 03/16/24 00:[address]: Ki Hoff DEPT: SURGICAL PATHOLOGY RECD BY: Colette Wade ENTERED: 03/17/24 11:06 SP TYPE: SEPTUM OTHR DR: Dr. Yohan Rios MD [facility] Tissues: Nasal septum, NOS Procedures: Surgery Specimen Level III HEADER OPERATION: Septoplasty and submucous resection of inferior turbinates PRE-OP DIAGNOSIS: Nasal congestion, deviated nasal septum, hypertrophy of nasal turbinates TISSUE SUBMITTED: Nasal septum MICROSCOPIC DIAGNOSIS Nasal septum, septoplasty: Fragments of hyalinized cartilage and bone with focal reparative change (clinically deviated septum). 03/20/2024 MICROSCOPIC DESCRIPTION Slides are reviewed. GROSS DESCRIPTION Received is one container labeled with the patient's name and not further designated. The specimen consists of multiple fragments of bone and cartilage measuring in aggregate 4.0 x 3.5 x 0.8cm. The entire specimen is submitted in two cassettes after decalcification. 03/17/2024 TC:5 CPT:65323,09791
== END | disposition home or self-care (01) ==
PROVIDERS: PCP Family Medicine; Referring Provider Otolaryngology; Visit Provider Otolaryngology
DX: J34.3 Hypertrophy of nasal turbinates (principal); R09.81 Nasal congestion; J34.2 Deviated nasal septum
CPT/HCPCS: 88304

== ENCOUNTER → 2024-04-13 | Outpatient (CLI) | payer BC, SELFPAY ==
[2024-04-13 10:27] LABS: Cholesterol 151 mg/dL (200); High Density Lipoprotein 35 mg/dL; PSA,Total - Annual Screen 0.41 ng/mL (0.00-4.00); Triglycerides 164 mg/dL; Very Low Density Lipoprotein 33 mg/dL (5-40)
== END | disposition home or self-care (01) ==
PROVIDERS: PCP Family Medicine; Referring Provider Family Medicine; Visit Provider Family Medicine
DX: E78.5 Hyperlipidemia, unspecified (principal); Z12.5 Encounter for screening for malignant neoplasm of prostate
CPT/HCPCS: 36415; 80061; 84153; G0103

== ENCOUNTER → 2025-04-15 | Outpatient (CLI) | payer BC, SELFPAY ==
[2025-04-15 13:03] LABS: AST(SGOT) 18 U/L (<=37); Alanine Aminotransfer ALT/SGPT 17 U/L (<=46); Albumin, Serum 4.6 g/dL (3.5-5.0); Alkaline Phosphatase 73 U/L (40-129); Anion Gap 10 (5-15); BUN 17 mg/dL (4-19); BUN/Creat Ratio 14.6 RATIO (10-20); Calcium,Total 9.6 mg/dL (7.6-11.0); Carbon Dioxide 26.2 mmol/L (21.0-32.0); Chloride 104 mmol/L (98-108); Cholesterol 164 mg/dL (<=200); Globulin 2.7 g/dL (2.2-4.2); Glucose 90 mg/dL (70-99); Low Density Lipoprotein Calc. 106 mg/dL; PSA,Total - Annual Screen 0.41 ng/mL (0.02-4.00); Potassium 4.2 mmol/L (3.3-5.1); Triglycerides 127 mg/dL; Very Low Density Lipoprotein 25 mg/dL (5-40); cholesterol:hdl ratio screen 4.73
== END | disposition home or self-care (01) ==
LOC: MFPLAB 10:40
PROVIDERS: PCP Family Medicine; Visit Provider Family Medicine
DX: I10 Essential (primary) hypertension (principal); Z12.5 Encounter for screening for malignant neoplasm of prostate
CPT/HCPCS: 36415; 80053; 80061; 84153; G0103